=== PATIENT | female | born 1965 | race Caucasian/White ===

== ENCOUNTER 2020-07-18 09:56 | Outpatient (NON) | payer OTHER, SELFPAY ==
[2020-07-18 22:22] LABS: SARS-CoV-2 RNA PCR Negative
== END 2020-07-18 09:57 ==
PROVIDERS: PCP Family Medicine; Visit Provider Family Medicine
DX: R05 Cough (principal); R19.7 Diarrhea, unspecified; R53.83 Other fatigue; Z20.822 Contact with and (suspected) exposure to COVID-19
CPT/HCPCS: C9803; U0003

== ENCOUNTER 2020-09-15 15:28 | Outpatient (CLI) | payer OTHER, SELFPAY | END 2020-09-15 15:29 | disposition home or self-care (01) | LOC: ANHCOVIDVC 15:28 | PROVIDERS: PCP Family Medicine | DX: Z23 Encounter for immunization (principal) | CPT/HCPCS: 0001A; 91300 ==

== ENCOUNTER 2020-10-06 15:29 | Outpatient (CLI) | payer OTHER, SELFPAY | END 2020-10-06 15:30 | disposition home or self-care (01) | LOC: ANHCOVIDVC 15:29 | PROVIDERS: PCP Family Medicine | DX: Z23 Encounter for immunization (principal) | CPT/HCPCS: 0002A; 91300 ==

== ENCOUNTER 2024-02-24 16:22 | Emergency (ER) | payer OTHER, SELFPAY ==
--- NOTE | 2024-02-24 16:24 | ED.URI ---
HPI - URI/Sore Throat General Chief Complaint: Upper Respiratory Infection Stated Complaint: Sinus Infection Symptoms Time Seen by Provider: 02/24/24 16:23 Source: patient Mode of arrival: ambulatory Limitations: no limitations History of Present Illness HPI Narrative: Amairani is a 59-year-old female patient presenting to the clinic today with complaints of possible sinus infection. She reports she has had nasal congestion and some sinus pressure for the past 5 days. States she is blowing out clear nasal drainage. Has been taking Mucinex and Tylenol with little relief. MD elicited complaint: sore throat and nasal congestion Related Data Home Medications Medication Instructions Recorded Confirmed calcipotriene-betamethasone 0.005 1 applic topical DAILY 09/20/23 02/24/24 %-0.064 % topical ointment (Taclonex) fluoride (sodium) 1.1 % dental 1 applic dental DIRECTED 09/20/23 02/24/24 cream (PreviDent 5000 Plus) Allergies Allergy/AdvReac Type Severity Reaction Status Date / Time bacitracin [Polysporin] Allergy Unknown Skin Verified 02/24/24 16:45 Reaction nickel Allergy Unknown Unknown Verified 02/24/24 16:45 polymyxin B [Polysporin] Allergy Unknown Skin Verified 02/24/24 16:45 Reaction Sulfa (Sulfonamide Allergy Unknown Unknown Verified 02/24/24 16:45 Antibiotics) levofloxacin AdvReac Unknown SORE IN Verified 02/24/24 16:45 MOUTH BANDAIDS Allergy Unknown RASH Uncoded 02/24/24 16:45 SENSYDONE TOOTHPASTE Allergy Unknown NUMBNESS Uncoded 02/24/24 16:45 IN MOUTH FEELING SOB Review of Systems Review of Systems: Pertinent positives per HPI. Patient denies any fever, chills, rash, headache, visual changes, dizziness, shortness of breath, chest pain, palpitations, nausea, vomiting, diarrhea, constipation, abdominal pain, or any urinary issues. [facility] Past Medical History Medical History (Updated 02/24/24 @ 16:52 by Evangelista Mckeon APRN) Adjustment disorder with anxious mood Other osteoporosis with current pathological fracture, left femur, initial encounter for fracture Overweight (BMI 25.0-29.9) Phlebitis and thrombophlebitis of right popliteal vein Surgical History Surgical History H/O section (~1997) History of endometrial ablation History of tubal ligation Family History Family History Father Diabetes mellitus Hypertension Sibling Diabetes mellitus Hypertension Grandparent Family history of malignant neoplasm of breast Social History Social History Smoking status: Never smoker Alcohol intake: current Lack of Transportation: No Lack of Food: Never True Current Housing: I Have Housing Concerned About Future Housing: No Difficulty Paying Gas/Electric Bills: No Difficulty Paying for Meds: No Currently Unemployed: No Education: Bachelor's Degree Difficulty w/ Childcare or Family Care: No Comments At the time of my signature, I reviewed and agree with the nursing past medical, surgical, social, and family history. There is no relevant family history pertinent to the patient complaint. Exam Narrative: General: Well-developed, well nourished, in no apparent distress Head: Normocephalic, atraumatic Eyes: Pupils equally round and reactive to light bilaterally, EOM intact, sclera and conjunctive clear, no discharge, lids normal Ears: TMs intact and congested, ear canals clear, no drainage, grossly hearing normal. Nose: Nares patent, clear nasal discharge, mild inflammation, no sinus tenderness. Mouth: Oral pharynx without lesions or masses, good dentition, MMM. Neck: Supple, trachea midline, no enlargement of anterior or posterior cervical nodes, no thyroid masses or goiter palpable. Cardio: Regular rate and rhythm, s1 and s2 normal, no murmur apprecia
[2024-02-24 16:44] VITALS: BP 111/75; PULSE 80; RESP 16; TEMP 36.3; O2SAT 99
== END 2024-02-24 16:54 | disposition home or self-care (01) ==
PROVIDERS: Emergency Provider Nurse Practitioner Family; PCP Family Medicine
DX: J06.9 Acute upper respiratory infection, unspecified (principal); R05.9 Cough, unspecified; R09.89 Other specified symptoms and signs involving the circulatory and respiratory systems
CPT/HCPCS: 99213; G0463

== ENCOUNTER 2024-08-01 10:04 | Emergency (ER) | payer OTHER, SELFPAY ==
--- NOTE | ~2024-08-01 | XR_ITS ---
EXAMINATION: XR foot RT min 3V DATE: 08/01/2024 10:52 INDICATION: Right foot pain post injury TECHNIQUE: Dorsoplantar, two oblique and lateral views of the right foot were obtained. COMPARISON: None. FINDINGS: Nondisplaced intra-articular fracture at the base of the right fifth metatarsal. There appears be sub tle sclerosis along portions of the fracture margins suggesting this may be subacute. No other fractu res identified. Alignment remains essentially anatomic. Mild osteoarthritis at the first metatarsopha langeal and a few tarsometatarsal and interphalangeal joints. IMPRESSION: 1. Nondisplaced intra-articular fracture at the base of the right fifth metatarsal with some stenosis along the fracture plane suggesting this may be subacute. Correlate with clinical history. Reviewed, dictated and finalized at location A. [employer] OPERATIONS PROJECT MANAGER IMPRESSION: 1. Nondisplaced intra-articular fracture at the base of the right fifth metatar tye with some stenosis along the fracture plane suggesting this may be subacute . Correlate with clinical history.
--- NOTE | 2024-08-01 10:11 | ED_ITS ---
HPI - Extremity Injury (Lower) General Chief Complaint: Extremity Injury, Lower Stated Complaint: R FOOT PAIN Time Seen by Provider: 08/01/24 11:06 Source: patient and RN notes reviewed Mode of arrival: ambulatory Limitations: no limitations History of Present Illness HPI Narrative: 59-year-old female presents with concern for right foot pain. Reports she injured the foot in May and has been walking on it, it started to feel better but she stepped on it wrong and started having pain again. She reports pain at the base of the foot since. Reports she has taken ibuprofen about much relief. She has been walking on the foot. MD complaint: foot injury Related Data Home Medications ?Medication ?Instructions ?Recorded ?Confirmed ?Last Taken ?Type calcipotriene-betamethasone 0.005 1 applic topical DAILY 09/20/23 03/19/24 Unknown History %-0.064 % topical ointment (Taclonex) nitrofurantoin PO 03/19/24 03/19/24 Unknown History monohydrate/macrocrystals 100 mg capsule tacrolimus 0.1 % topical ointment topical 03/19/24 03/19/24 Unknown History Allergies Allergy/AdvReac Type Severity Reaction Status Date / Time bacitracin (Polysporin) Allergy Unknown Skin Verified 08/01/24 10:38 Reaction nickel Allergy Unknown Unknown Verified 08/01/24 10:38 polymyxin B (Polysporin) Allergy Unknown Skin Verified 08/01/24 10:38 Reaction Sulfa (Sulfonamide Allergy Unknown Unknown Verified 08/01/24 10:38 Antibiotics) levofloxacin AdvReac Unknown SORE IN Verified 08/01/24 10:38 MOUTH BANDAIDS Allergy Unknown RASH Uncoded 08/01/24 10:38 SENSYDONE TOOTHPASTE Allergy Unknown NUMBNESS Uncoded 08/01/24 10:38 IN MOUTH FEELING SOB Review of Systems Review of Systems: CONSTITUTIONAL: Denies malaise, chills, sweats, or fever. SKIN: Denies rash or itching, open skin, laceration, abrasion, redness, warmth, swelling. MUSCULOSKELETAL: Reports right foot pain NEUROLOGIC: Denies numbness, weakness All systems reviewed & are unremarkable except as noted in HPI and below PMFSH Past Medical History Medical History Adjustment disorder with anxious mood Other osteoporosis with current pathological fracture, left femur, initial encounter for fracture Overweight (BMI 25.0-29.9) Phlebitis and thrombophlebitis of right popliteal vein Surgical History Surgical History H/O section (~1997) History of endometrial ablation History of tubal ligation Family History Family History Father Diabetes mellitus Hypertension Sibling Diabetes mellitus Hypertension Grandparent Family history of malignant neoplasm of breast Social History Social History Smoking status: Never smoker Alcohol intake: current Lack of Transportation: No Lack of Food: Never True Current Housing: I Have Housing Concerned About Future Housing: No Difficulty Paying Gas/Electric Bills: No Difficulty Paying for Meds: No Currently Unemployed: No Education: Bachelor's Degree Difficulty w/ Childcare or Family Care: No Comments At time of signature, agree with nursing past medical, surgical, social and family history. There is no relevant family history pertinent to the presenting complaint Exam Narrative: GENERAL: Well-appearing, well-nourished, and in no acute distress. HEAD: Normocephalic, atraumatic. EYES: PERRLA, conjunctivae clear NECK: Supple. CHEST: Speaks in full sentences. No respiratory distress. HEART: Regular rate and rhythm. Normal and equal peripheral pulses. EXTREMITIES: Right ankle, foot, digits have grossly normal strength and sensation, grossly normal range of motion. No edema or ecchymosis. Normal sensation with sensitivity to light touch and pain. Lateral foot tenderness. No open wounds, no skin tenting, no devitalized tissue or atrophy, no trophic changes, no obvious deformity, alignment normal, nearby joints and structures intact. Distal pulses palpable and equal bilaterally, skin warm, dry, pink. Capillary refill less than 3 seconds. SKIN: Warm, dry, no rash. NEURO: Alert and oriented x3. PSYCH: Normal mood and affect Course Course Emergency Course: Patient is aware of diagnosis, understands and agrees to treatment plan. Anticipatory guidance given. Patient agrees to follow-up as directed and is aware of reasons to seek care at the emergency department. Portions of this record may have been created with voice recognition software Level of Care: Express Care Visit Vital Signs Vital signs: Reviewed. MDM - Extremity Injury (Lower) MDM Narrative Medical decision making narrative: Patients injury and pain is consistent with musculoskeletal etiology. No signs of neurological or vascular compromise on exam. Compartments and tissues are soft without signs of compartment syndrome. Pain is felt appropriate for further evaluation on an outpatient basis. Imaging Data Radiologist's impression: EXAMINATION: XR foot RT min 3V DATE: 08/01/2024 10:52 INDICATION: Right foot pain post injury TECHNIQUE: Dorsoplantar, two oblique and lateral views of the right foot were obtained. COMPARISON: None. FINDINGS: Nondisplaced intra-articular fracture at the base of the right fifth metatarsal. There appears be subtle sclerosis along portions of the fracture margins suggesting this may be subacute. No other fractures identified. Alignment remains essentially anatomic. Mild osteoarthritis at the first metatarsophala ngeal and a few tarsometatarsal and interphalangeal joints. IMPRESSION: 1. Nondisplaced intra-articular fracture at the base of the right fifth metatarsal with some stenosis along the fracture plane suggesting this may be subacute. Correlate with clinical history. Critical Care Time Critical Care Time Critical Care Time: No Discharge Plan Discharge Clinical Impression: Metatarsal fracture Qualifiers: Encounter type: initial encounter Metatarsal bone: fifth Fracture type: closed Fracture alignment: nondisplaced Laterality: right Qualified Code(s): S92.354A - Nondisplaced fracture of fifth metatarsal bone, right foot, initial encounter for closed fracture Patient Disposition: Home, Self-Care Condition: Stable Instructions: Foot Fracture in Adults (ED) Additional Instructions: Please rest, ice and elevate the affected extremity. Please take Motrin 600mg every 8 hours, as needed, for pain (take with food), you can take prescribed pain medicine for pain that is not relieved with ibuprofen. Follow up with Orthopedic Surgery in 1-2 days for further evaluation - please call for an appointment. Keep orthopedic shoe on during waking hours. Use crutches to avoid bearing weight on your right foot. Please go to ER immediately for increased pain, tingling/numbness, swelling, redness, and fever Patient Language: Anguillan Prescriptions: New tramadol 50 mg tablet 50 mg PO Q6H PRN (Reason: pain) Qty: 10 0RF No Action betamethasone dipropionate 0.05 % cream 1 applic topical BID PRN (Reason: skin irritation) Qty: 15 1RF ibandronate 150 mg tablet 150 mg PO MONTHLY Qty: 12 0RF nitrofurantoin monohyd/m-cryst 100 mg capsule PO tacrolimus 0.1 % ointment topical fluoride (sodium) [PreviDent 5000 Plus] 1.1 % cream 1 applic dental DAILY Qty: 153 1RF phenazopyridine [Pyridium] 200 mg tablet 200 mg PO TID PRN (Reason: pain) Qty: 90 1RF calcipotriene-betamethasone [Taclonex] 0.005-0.064 % ointment 1 applic topical DAILY sucralfate 100 mg/mL suspension 2 g PO QHS Qty: 200 3RF sucralfate 1 gram tablet 1 g PO TID PRN (Reason: gastric reflux) Qty: 180 1RF atorvastatin 10 mg tablet See Rx Instructions .ROUTE .COMPLEX Qty: 90 3RF Dose Instruction: TAKE 1 TABLET DAILY Rx Instructions: TAKE 1 TABLET DAILY aspirin 81 mg tablet,delayed release (DR/EC) See Rx Instructions .ROUTE .COMPLEX Qty: 100 3RF Dose Instruction: TAKE 1 TABLET DAILY Rx Instructions: TAKE 1 TABLET DAILY semaglutide 0.25 mg or 0.5 mg(2 mg/1.5 mL) pen injector 0.5 mg subcut WEEKLY Qty: 4.5 3RF metformin 1,000 mg tablet 1,000 mg PO BID Qty: 180 3RF omeprazole 20 mg capsule,delayed release(DR/EC) 40 mg PO DAILY Qty: 180 1RF Jardiance 25 mg tablet 25 mg PO DAILY Qty: 90 1RF loratadine 10 mg tablet See Rx Instructions .ROUTE .COMPLEX Qty: 90 3RF Dose Instruction: TAKE 1 TABLET DAILY Rx Instructions: TAKE 1 TABLET DAILY escitalopram oxalate [Lexapro] 10 mg tablet 10 mg PO DAILY Qty: 90 1RF Follow-up/Referrals: Avtar Kebede MD [Physician] - Yonathan Germain MD [Primary Care Provider] - Time of Disposition: 11:20
[2024-08-01 10:38] VITALS: BP 120/66; PULSE 84; RESP 16; TEMP 36.4; O2SAT 100
== END 2024-08-01 11:32 | disposition home or self-care (01) ==
PROVIDERS: Emergency Provider Nurse Practitioner; PCP Family Medicine
DX: S92.354A Nondisplaced fracture of fifth metatarsal bone, right foot, initial encounter for closed fracture (principal); X50.1XXA Overexertion from prolonged static or awkward postures, initial encounter; M81.0 Age-related osteoporosis without current pathological fracture
CPT/HCPCS: 73630; 99214; G0463

== ENCOUNTER 2025-05-18 16:59 | Emergency (ER) | payer OTHER, SELFPAY ==
--- NOTE | ~2025-05-18 | XR_ITS ---
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 Findings: No acute fracture or malalignment. Moderate to severe tricompartmental degenerative changes, small effusion Soft tissues unremarkable. Impression: No acute fracture or malalignment. Reviewed, dictated and finalized at location P. F TENDER HELPER Impression: No acute fracture or malalignment.
--- NOTE | 2025-05-18 17:09 | ED.LOWEXIN ---
HPI - Extremity Injury (Lower) General Chief Complaint: Extremity Problem,Nontraumatic Stated Complaint: L KNEE/LEG PAIN Time Seen by Provider: 05/18/25 17:11 Source: patient and RN notes reviewed Mode of arrival: ambulatory Limitations: no limitations History of Present Illness HPI Narrative: 60 year old female presents with concern for left knee pain. She reports pain started after using a rowing machine a week ago. She denies pain at rest, but has pain with weight-bearing and flexion and extension. She has taken ibuprofen, ice, and rested. She denies decreased strength, sensation, range of motion. Denies distal swelling, redness, warmth. She denies pain with flexion of her ankle. MD complaint: knee injury Related Data Home Medications ?Medication ?Instructions ?Recorded ?Confirmed ?Last Taken ?Type tacrolimus 0.1 % topical ointment topical 03/19/24 04/15/25 Unknown History Allergies Allergy/AdvReac Type Severity Reaction Status Date / Time bacitracin (Polysporin) Allergy Unknown Skin Verified 05/18/25 17:11 Reaction nickel Allergy Unknown Unknown Verified 05/18/25 17:11 polymyxin B (Polysporin) Allergy Unknown Skin Verified 05/18/25 17:11 Reaction Sulfa (Sulfonamide Allergy Unknown Unknown Verified 05/18/25 17:11 Antibiotics) levofloxacin AdvReac Unknown SORE IN Verified 05/18/25 17:11 MOUTH BANDAIDS Allergy Unknown RASH Uncoded 04/15/25 15:08 SENSYDONE TOOTHPASTE Allergy Unknown NUMBNESS Uncoded 04/15/25 15:08 IN MOUTH FEELING SOB Review of Systems Review of Systems: CONSTITUTIONAL: Denies malaise, chills, sweats, or fever. SKIN: Denies rash or itching, open skin, laceration, abrasion, redness, warmth, swelling. MUSCULOSKELETAL: Reports left knee pain NEUROLOGIC: Denies numbness, weakness All systems reviewed & are unremarkable except as noted in HPI and below PMFSH Past Medical History Medical History Fracture of 5th metatarsal Concussion Laceration of brow without complication Fracture of right foot Adjustment disorder with anxious mood Overweight (BMI 25.0-29.9) Other osteoporosis with current pathological fracture, left femur, initial encounter for fracture Phlebitis and thrombophlebitis of right popliteal vein Surgical History Surgical History H/O section (~1997) History of endometrial ablation History of tubal ligation Family History Family History Father Diabetes mellitus Hypertension Sibling Diabetes mellitus Hypertension Grandparent Family history of malignant neoplasm of breast Social History Social History Alcohol intake: current Lack of Transportation: No Lack of Food: Never True Current Housing: I Have Housing Concerned About Future Housing: No Difficulty Paying Gas/Electric Bills: No Difficulty Paying for Meds: No Currently Unemployed: No Education: Bachelor's Degree Difficulty w/ Childcare or Family Care: No Comments At time of signature, agree with nursing past medical, surgical, social and family history. There is no relevant family history pertinent to the presenting complaint Exam Narrative: GENERAL: Well-appearing, well-nourished, and in no acute distress. HEAD: Normocephalic, atraumatic. EYES: PERRLA, conjunctivae clear NECK: Supple. CHEST: Speaks in full sentences. No respiratory distress. HEART: Regular rate and rhythm. Normal and equal peripheral pulses. EXTREMITIES: Left knee has grossly normal strength and sensation, grossly normal range of motion. No edema or ecchymosis. 5/5 strength with knee flexion and extension. Normal sensation with sensitivity to light touch and pain. Lateral knee tenderness. No open wounds, no skin tenting, no devitalized tissue or atrophy, no trophic changes, no obvious deformity, alignment normal, nearby joints and structures intact. Distal pulses palpable and equal bilaterally, skin warm, dry, pink. Capillary refill less than 3 seconds. SKIN: Warm, dry, no rash. NEURO: Alert and oriented x3. PSYCH: Normal mood and affect Course Course Emergency Course: Patient is aware of diagnosis, understands and agrees to treatment plan. Anticipatory guidance given. Patient agrees to follow-up as directed and is aware of reasons to seek care at the emergency department. Portions of this record may have been created with voice recognition software Level of Care: Express Care Visit Vital Signs Vital signs: Reviewed. MDM - Extremity Injury (Lower) MDM Narrative Medical decision making narrative: The patient was evaluated by myself in the express care. History is obtained from patient who is an independent historian and physical exam was performed.? Available medical records were reviewed at this time. ? Exam findings show no acute concerns or changes; patient is non-toxic appearing and is in no distress. Patient is appropriate for outpatient treatment and follow-up. ? I have evaluated and discussed social determinants of health with the patient that could potentially impact subsequent diagnosis and treatment plans. ? Patients injury and pain is consistent with musculoskeletal etiology. No signs of neurological or vascular compromise on exam. Compartments and tissues are soft without signs of compartment syndrome. Pain is felt appropriate for further evaluation on an outpatient basis. Imaging Data My impression: Images reviewed, interpreted by radiologist, agree, see report. 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 Findings: No acute fracture or malalignment. Moderate to severe tricompartmental degenerative changes, small effusion Soft tissues unremarkable. Impression: No acute fracture or malalignment. Critical Care Time Critical Care Time Critical Care Time: No Discharge Plan Discharge Clinical Impression: Arthritis of knee, left, Effusion of knee joint, left Patient Disposition: Home Condition: Stable Instructions: Osteoarthritis (ED) Additional Instructions: Avoid activities that cause pain until the pain subsides. Ice to the area 20-30 minutes 4-6 times a day Elevate above heart Elastic wrap as directed for comfort for the next 5-7 days Tylenol for lesser pain Ibuprofen regularly for the next 2-3 days for the inflammation Follow up with your primary care provider if the condition is not improving within 1 week. If the condition worsens with numbness, tingling, decrease sensation with weakness seek treatment in the emergency room immediately. Patient Language: Pashto Prescriptions: No Action ibandronate 150 mg tablet 150 mg PO MONTHLY Qty: 12 0RF tacrolimus 0.1 % ointment topical fluoride (sodium) [PreviDent 5000 Plus] 1.1 % cream 1 applic dental DAILY Qty: 153 1RF sucralfate 100 mg/mL suspension 2 g PO QHS Qty: 200 3RF phenazopyridine [Pyridium] 200 mg tablet 200 mg PO TID PRN (Reason: pain) Qty: 90 1RF escitalopram oxalate [Lexapro] 10 mg tablet 10 mg PO DAILY Qty: 90 1RF sucralfate 1 gram tablet See Rx Instructions .ROUTE .COMPLEX Qty: 270 3RF Dose Instruction: TAKE 1 TABLET THREE TIMES A DAY NEEDED FOR GASTRIC REFLUX Rx Instructions: TAKE 1 TABLET THREE TIMES A DAY NEEDED FOR GASTRIC REFLUX atorvastatin 10 mg tablet See Rx Instructions .ROUTE .COMPLEX Qty: 90 3RF Dose Instruction: TAKE 1 TABLET DAILY Rx Instructions: TAKE 1 TABLET DAILY nitrofurantoin monohyd/m-cryst 100 mg capsule 100 mg PO 3XW Qty: 36 1RF aspirin 81 mg tablet,delayed release (DR/EC) See Rx Instructions .ROUTE .COMPLEX Qty: 100 3RF Dose Instruction: TAKE 1 TABLET DAILY Rx Instructions: TAKE 1 TABLET DAILY metformin 1,000 mg tablet 1,000 mg PO BID Qty: 180 3RF Ozempic 0.25 mg or 0.5 mg (2 mg/3 mL) pen injector See Rx Instructions .ROUTE .COMPLEX Qty: 9 3RF Dose Instruction: INJECT 0.5 MG UNDER THE SKIN WEEKLY Rx Instructions: INJECT 0.5 MG UNDER THE SKIN WEEKLY omeprazole 20 mg capsule,delayed release(DR/EC) See Rx Instructions .ROUTE .COMPLEX Qty: 180 1RF Dose Instruction: TAKE 2 CAPSULES DAILY Rx Instructions: TAKE 2 CAPSULES DAILY Jardiance 25 mg tablet 25 mg PO DAILY Qty: 90 1RF loratadine 10 mg tablet See Rx Instructions .ROUTE .COMPLEX Qty: 90 1RF Dose Instruction: TAKE 1 TABLET DAILY Rx Instructions: TAKE 1 TABLET DAILY Follow-up/Referrals: Yonathan Germain MD [Primary Care Provider, [facility]] Time of Disposition: 17:48
[2025-05-18 17:10] VITALS: BP 121/85; PULSE 83; RESP 16; TEMP 36.6; O2SAT 98
== END 2025-05-18 17:53 | disposition home or self-care (01) ==
PROVIDERS: Emergency Provider Nurse Practitioner; PCP Family Medicine
DX: M17.12 Unilateral primary osteoarthritis, left knee (principal); M25.462 Effusion, left knee; M81.0 Age-related osteoporosis without current pathological fracture; Z86.72 Personal history of thrombophlebitis
CPT/HCPCS: 73562; 99213; G0463